=== PATIENT | female | born 1970 | race Caucasian/White ===

== ENCOUNTER 2023-09-01 06:42 | Day surgery (SDC) | payer MEDICAID ==
[2023-08-31 17:04] LABS: BASOPHILS # (AUTO) 0.1 K/uL (0.00-0.22); BASOPHILS % (AUTO) 0.8 % (0.0-2.0); EOSINOPHILS # (AUTO) 0.1 K/uL (0-0.4); EOSINOPHILS % (AUTO) 1.6 % (0.0-4.0); HEMOGLOBIN 7.8 g/dL (12.0-16.0); LYMPHOCYTES % (AUTO) 29.4 % (20.5-51.1); MEAN CORPUSCULAR HEMOGLOBIN 21 pg (27-31); MEAN CORPUSCULAR HGB CONC 30 g/dL (33-37); MEAN CORPUSCULAR VOLUME 70.2 fL (80-94); MONOCYTES # (AUTO) 0.7 K/uL (0.8-1.0); NEUTROPHILS % (AUTO) 58.2 % (42.2-75.2); PLATELET COUNT (AUTO) 335 K/uL (140-450); RED BLOOD CELL COUNT(AUTO) 3.71 MIL/uL (4.20-5.40); WHITE BLOOD COUNT (AUTO) 6.9 K/uL (4.8-10.8)
[2023-08-31 17:24] LABS: ALBUMIN 4.2 g/dL (3.4-5.0); ANION GAP 16.6 (8-16); CALCIUM 9.8 mg/dL (8.5-10.1); POTASSIUM 3.6 mmol/L (3.5-5.1); TOTAL BILIRUBIN 0.6 mg/dL (0.0-1.0); TOTAL PROTEIN, SERUM 8.5 g/dL (6.4-8.2)
[~2023-09-01] VITALS: Ht 165.1 cm; Wt 99.3 kg
[2023-09-01] MEDS: BUPIVACAINE-MPF 0.25% 30 ML VIAL INJ ONE (07:39)
[2023-09-01] MEDS: LIDOCAINE/EPI 1% 1:100000 20 ML VIAL INJ ONE (07:39)
[2023-09-01] MEDS: ACETAMINOPHEN 100 ML IV ONE (07:40)
[2023-09-01] MEDS: fentaNYL citrate 0.05 MG/ML VIAL ONE (07:44)
[2023-09-01] MEDS: MIDAZOLAM 2 MG/2 ML VIAL ONE (07:45)
[2023-09-01] MEDS: ROCURONIUM 50 MG/5 ML VIAL IV ONE ×3 (07:47→07:52)
[2023-09-01] MEDS: PROPOFOL 200 MG/20 ML VIAL IV ONE ×2 (07:47→09:12)
[2023-09-01] MEDS: DEXAMETHASONE 4 MG/ML VIAL ONE ×2 (08:02)
[2023-09-01] MEDS: ONDANSETRON 4 MG/2 ML VIAL ONE ×2 (08:02)
[2023-09-01] MEDS: KETOROLAC 30 MG/ML VIAL ONE (09:12)
[2023-09-01] MEDS: GLYCOPYRROLATE 0.2 MG/ML VIAL ONE ×4 (09:35)
[2023-09-01] MEDS: NEOSTIGMINE 1:1000 10 MG/10 ML VIAL ONE ×2 (09:42)
[2023-09-01] MEDS: HYDROmorphone 1 MG/ML AMP IVP PRN (10:03)
[2023-09-01] MEDS: HYDROmorphone PFS 2 MG/ML SYR ONE (10:14)
[2023-09-01] MEDS ORDERED: HYDROmorphone 1 MG/ML AMP IVP PRN (10:20)
[2023-09-01 10:39] LABS: HEMATOCRIT 24.4 % (36-48); HEMOGLOBIN 7.2 g/dL (12.0-16.0)
[2023-09-01 20:00] VITALS: BP 139/78; PULSE 87; RESP 18; TEMP 98.1; O2SAT 98
[2023-09-01] MEDS: KETOROLAC 30 MG/ML VIAL IVP PRN (20:26)
[2023-09-02] VITALS: BP 136/80; PULSE 84; RESP 16; TEMP 98; O2SAT 98
[2023-09-02] MEDS: LACTATED RINGERS 1,000 ML IV SCH
[2023-09-02 04:05] VITALS: BP 133/78; PULSE 82; RESP 18; TEMP 97.8; O2SAT 98
[2023-09-02 08:00] VITALS: BP 100/72; PULSE 92; RESP 18; TEMP 97.8; O2SAT 94
[2023-09-02 10:03] LABS: BASOPHILS % (AUTO) 0.1 % (0.0-2.0); HEMATOCRIT 20.9 % (36-48); LYMPHOCYTES # (AUTO) 1.7 K/uL (2.5-16.5); LYMPHOCYTES % (AUTO) 20.4 % (20.5-51.1); MEAN CORPUSCULAR HEMOGLOBIN 21 pg (27-31); MEAN CORPUSCULAR HGB CONC 30 g/dL (33-37); MEAN CORPUSCULAR VOLUME 69.7 fL (80-94); MONOCYTES # (AUTO) 0.4 K/uL (0.8-1.0); MONOCYTES % (AUTO) 4.9 % (1.7-9.3); NEUTROPHILS # (AUTO) 6.3 K/uL (1.8-7.7); NEUTROPHILS % (AUTO) 74.6 % (42.2-75.2); PLATELET COUNT (AUTO) 263 K/uL (140-450); RED BLOOD CELL COUNT(AUTO) 2.99 MIL/uL (4.20-5.40); RED CELL DISTRIBUTION WIDTH 28.6 % (11.6-13.7); WHITE BLOOD COUNT (AUTO) 8.5 K/uL (4.8-10.8)
[2023-09-02 10:17] LABS: HEMOGLOBIN 6.2 g/dL (12.0-16.0)
[2023-09-02 10:28] LABS: ALBUMIN 3.1 g/dL (3.4-5.0); ANION GAP 13.3 (8-16); CALCIUM 8.4 mg/dL (8.5-10.1); CARBON DIOXIDE 23.5 mmol/L (21-32); CREATININE 0.7 mg/dL (0.6-1.3); POTASSIUM 3.8 mmol/L (3.5-5.1); TOTAL BILIRUBIN 0.7 mg/dL (0.0-1.0); TOTAL PROTEIN, SERUM 6.7 g/dL (6.4-8.2)
[2023-09-02 10:45] LABS: ANISOCYTOSIS 3+
[2023-09-02 10:46] LABS: OVALOCYTES 2+
[2023-09-02 17:49] VITALS: BP 102/74; PULSE 90; RESP 18; TEMP 98.1; O2SAT 94
[2023-09-02 20:00] VITALS: BP 104/58; PULSE 91; RESP 18; TEMP 98.3; O2SAT 98
[2023-09-03] VITALS: BP 104/58; PULSE 91; RESP 18; TEMP 98.3; O2SAT 98
[2023-09-03 04:00] VITALS: BP 103/56; PULSE 85; RESP 18; TEMP 97.6; O2SAT 97
[2023-09-03 08:00] VITALS: BP 103/58; PULSE 73; RESP 16; TEMP 97.3; O2SAT 96
[2023-09-03 10:51] VITALS: BP 103/58; PULSE 73; RESP 16; TEMP 97.3
== END 2023-09-03 12:00 | disposition home or self-care (01) ==
LOC: MDS 06:42 → MMU 06:43 → EDSTATUS 07:30 → MTU 11:10 → MDS 09-03 12:00
PROVIDERS: ATTEND Obstetrics & Gynecology
DX: N92.1 Excessive and frequent menstruation with irregular cycle (principal); D64.9 Anemia, unspecified; E11.9 Type 2 diabetes mellitus without complications; Z98.891 History of uterine scar from previous surgery; Z98.890 Other specified postprocedural states; Z79.899 Other long term (current) drug therapy
CPT/HCPCS: 36415; 58180; 80053; 82948; 85018; 85025; 86886; 86900; 86901; 86920; 93005; J0690; J1100; J1170; J1885; J2250; J2405; J2704; J2710; J3010; J3490; J7060; 88307; J2001